=== PATIENT | female | born 1990 | race Caucasian/White ===

== ENCOUNTER 2017-01-08 12:09 | Emergency (ER) | payer MEDICAID, OTHER ==
[2017-01-08] MEDS ORDERED: NS 1,000 ML IV ONE (12:32)
--- NOTE | 2017-01-08 12:52 | EDPHY ---
H & P Stated Complaint: Heroin use 1 hour ago Time Seen by Provider: 01/08/17 12:13 HPI/ROS: CHIEF COMPLAINT: Heroin use prior to arrival HISTORY OF PRESENT ILLNESS: 26-year-old female arrives via private vehicle with father who states that the patient violated her parole secondary to polysubstance abuse, her probation and parole officer recommended her father take [facility] father take patient to the [facility] however because she had used heroin approximately 1 hour prior to arrival they recommend she come to the ER for medical screening 1st. She has no complaints of pain or discomfort. Denies other substance abuse. She takes that daily Klonopin, denies overdose. Denies suicidal or homicidal ideation. Denies alcohol use. She is maintaining saturations 100% on supplemental oxygen REVIEW OF SYSTEMS: A ten point review of systems was performed and is negative with the exception of the items mentioned in the HPI PAST MEDICAL & SURGICAL HISTORY: No pertinent medical or surgical history SOCIAL HISTORY: Polysubstance abuse history including heroin approximately 10: 00 a.m. today PHYSICAL EXAM (Prior to examination, patient consented to physical exam, hands were washed and my usual and customary physical exam procedures followed) 1) GENERAL: Well-developed, well-nourished, alert and oriented. Somnolent 2) HEAD: Normocephalic, atraumatic 3) HEENT: Pupils equal, round, reactive to light bilaterally. Sclera anicteric. 4) NECK: Full range of motion, no meningeal signs. 5) LUNGS: Clear auscultation bilaterally, no wheezes, no rhonchi, no retractions. 6) HEART: Regular rate and rhythm, no murmur, no heave, no gallop. 7) ABDOMEN: No guarding, no rebound, no focal tenderness, 8) MUSCULOSKELETAL: No peripheral edema or discoloration. 9) BACK: No CVA tenderness. 10) SKIN: No rash, no petechiae. 11) Psychiatric: Patient is oriented X 3, there is no agitation. 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, Anxiety, Substance Abuse - Social History Smoking Status: Current every day smoker Constitutional: Initial Vital Signs Temperature (C) 36.5 C 01/08/17 12:12 Heart Rate 99 01/08/17 12:12 Respiratory Rate 10 L 01/08/17 12:12 Blood Pressure 100/73 01/08/17 12:12 O2 Sat (%) 70 L 01/08/17 12:12 O2 Delivery Mode Nasal Cannula O2 (L/minute) 2 Allergies/Adverse Reactions: amoxicillin [Amoxicillin] Allergy (Mild, Verified 09/08/11 15:17) Penicillins Allergy (Verified 09/08/11 15:17) Home Medications: Medication Instructions Recorded Alprazolam [Xanax 1mg] 1 mg PO TID PRN 09/08/11 DULoxetine [Cymbalta] 60 mg PO DAILY 09/08/11 Sprintac 09/08/11 Medical Decision Making - Diagnostics Imaging: PA and Lateral Chest 3:43 PM Indication: Chest pain Comparison: Two-view chest dated October 03, 2012 Findings: Lungs are well aerated and clear. No pneumothorax, edema, airspace consolidation or effusion. Impression: Clear lungs. No explanation for pain. Dictated By: Lance Rooney MD Images reviewed by myself ED Course/Re-evaluation: 1:15 p.m.: Received an unsolicited phone call from the [facility] informing the emergency department nurse that the patient is not allowed to come to the [facility] due to her history of benzodiazepine abuse. 1:50 p.m.: Re-evaluation, sleeping, easily awoken, she is less somnolent, states that she is feeling improvement after sleeping in the ER 3:55 p.m.: Re-evaluation, she is able to ambulate without assistance although she remains somnolent and desaturates to the mid 80s on room air. 100% with supplemental oxygen. 5:57 p.m.: Patient awake alert oriented person place time events, she sitting upright in the bed, maintain normal saturations, smiling, has no complaints of pain or discomfort, answering questions appropriately. Her father is EN route to pick her up will then take her likely to the [facility]. Inquired again at this time whether she has been experiencing suicidal or homicidal ideation and she denies this. - Data Points Laboratory Results: 01/08/17 12:30 Ethyl Alcohol < 10 mg/dL mg/dL (0-10) Medications Given: Discontinued Medications Sodium Chloride (Ns) 1,000 mls @ 0 mls/hr IV EDNOW ONE PRN Reason: Wide Open Stop: 01/08/17 12:33 Last Admin: 01/08/17 12:35 Dose: 1,000 mls Departure - Departure Disposition: Home, Routine, Self-Care Clinical Impression: Heroin abuse Condition: Good Instructions: Narcotic Abuse (ED) Referrals: [facility] [Outside] - 1-2 days without fail
[2017-01-08 13:13] LABS: ETHANOL SERUM < 10 mg/dL (0-10)
[2017-01-08 16:21] VITALS: RESP 12
[2017-01-08 18:03] VITALS: BP 110/75; PULSE 75; TEMP 97.9; O2SAT 92
== END 2017-01-08 18:18 | disposition home or self-care (01) ==
DX: F11.10 Opioid abuse, uncomplicated (principal); F17.200 Nicotine dependence, unspecified, uncomplicated
CPT/HCPCS: G0480